=== PATIENT | female | born 1980 | race Caucasian/White ===

== ENCOUNTER 2016-07-13 22:06 | Emergency (ER) | payer BC ==
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
[2016-07-13 23:10] LABS: Hematocrit 38.4 % (37.0-47.0); Hemoglobin 12.9 gm/dL (12.5-16.0); Mean Corpuscular Hemoglobin 31.9 pg (27-31); Mean Corpuscular Hgb Conc 33.6 g/dl (32-36); Neutrophil # 6.8 K/mm3 (1.3-6.0); Neutrophil % 65.8 % (42-75.0); Platelet Count 333 K/mm3 (150-450); Red Blood Count 4.04 M/mm3 (4.2-5.4); Red Cell Distribution Width 13.5 % (11.5-14.0); White Blood Count 10.3 K/mm3 (4.0-10.5)
[2016-07-13 23:19] LABS: Anion Gap 17.3 mmol/L (6.8-13.8); Calcium * 8.6 mg/dL (7.9-10.9); Carbon Dioxide 21.2 mmol/L (24-32.6); Estimated Creat Clear 70.9; Potassium 3.5 mmol/L (3.4-4.6)
[2016-07-14] MEDS ORDERED: IBUPROFEN 400 MG TABLET PO ONE (01:39)
[2016-07-14] MEDS ORDERED: IBUPROFEN 400 MG TABLET ONE (01:39)
[2016-07-14 01:55] VITALS: BP 96/63
== END 2016-07-14 01:54 | disposition home or self-care (01) ==
LOC: ER 22:06
PROC: 0JQN0ZZ Repair Right Lower Leg Subcutaneous Tissue and Fascia, Open Approach (ICD-10-PCS; principal; 2016-07-13)
DX: S81.011A Laceration without foreign body, right knee, initial encounter (principal); S10.93XA Contusion of unspecified part of neck, initial encounter; V89.2XXA Person injured in unspecified motor-vehicle accident, traffic, initial encounter

== ENCOUNTER 2017-02-17 08:33 | Day surgery (SDC) | payer BC ==
[~2017-02-17 08:33] MED LIST: RINGER'S SOLUTION,LACTATED 1,000 ML IV PRN
--- NOTE | 2017-02-17 09:43 | OR ---
Operative Report - Dictated Report Narrative: Date: 02/17/2017 Preop dx: Hemorrhoidal skin tag Postop dx: same Procedure: Excision hemorrhoidal skin tag Staff surgeon: Nestor Mason MD Anesthesia: Local/MAC Specimen: hemorrhoidal tag-discarded Description: Pt was placed in the lithotomy position and the perianal area was prepped and draped in a sterile fashion. A field block was performed with marcaine. Digital rectal exam was normal. A ivan retractor was inserted and no significant hemorrhoidal tissue was appreciated no masses were seen. Attention was turned to a hemorrhoidal skin tag anteriorly at 12:00. The tag was lifted with care so as not to entrain underlying sphincteric muscular and was then transected with a ligasure device. The was no blood loss. An anal retentive dressing was applied and the patient was discharged from the operating room in stable condition without apparent complications.
[2017-02-17] MEDS ORDERED: BUPIVACAINE HCL/EPINEPHRINE 50 ML VIAL IJ ONE (09:54)
[2017-02-17 11:24] VITALS: BP 125/80
== END 2017-02-17 08:34 | disposition home or self-care (01) ==
LOC: AMB 08:33
PROVIDERS: ATTEND Specialist
PROC: 0DBQXZZ Excision of Anus, External Approach (ICD-10-PCS; principal; 2017-02-17 09:00)
DX: K64.4 Residual hemorrhoidal skin tags (principal); E66.9 Obesity, unspecified; Z68.31 Body mass index [BMI] 31.0-31.9, adult